=== PATIENT | female | born 1950 | race Caucasian/White ===

== ENCOUNTER 2022-03-26 20:29 | Inpatient (IN) | payer BC, OTHER ==
[~2022-03-26] VITALS: Ht 154.9 cm; Wt 71.7 kg
[2022-03-26 20:29] VITALS: BP_SYST 219
--- NOTE | 2022-03-26 20:29 | NUR ---
Placed in room 03 . Placed on monitoring coordinator, blood pressure machine and pulse oximeter. To gown for exam. Side rails up. Report given to Doni GARZA .
--- NOTE | 2022-03-26 20:31 | NUR ---
Code stroke called at this time
--- NOTE | 2022-03-26 20:32 | NUR ---
Pt off the unit for CT
--- NOTE | 2022-03-26 20:50 | NUR ---
# 20 gauge angiocath placed to RAC. Use of asceptic technique. Opsite placed over site. Blood return noted. Blood for lab drawn from site. Flushed with 10 cc of normal saline. No evidence of infiltration noted. Patient tolerated well.
[2022-03-26 21:00] LABS: BASOPHILS % (AUTO) 0.4 % (0.0-2.0); EOSINOPHILS # (AUTO) 0.1 K/uL (0.0-0.4); EOSINOPHILS % (AUTO) 0.6 % (0.0-4.0); HEMATOCRIT 44.8 % (36-48); HEMOGLOBIN 14.6 g/dL (12.0-16.0); LYMPHOCYTES # (AUTO) 1.8 K/uL (1.0-5.5); LYMPHOCYTES % (AUTO) 19.7 % (20.5-51.5); MEAN CORPUSCULAR HEMOGLOBIN 27 pg (27-31); MEAN CORPUSCULAR HGB CONC 33 % (32-36); MEAN CORPUSCULAR VOLUME 82 fL (79.0-98.0); MONOCYTES # (AUTO) 0.6 K/uL (0.0-1.0); MONOCYTES % (AUTO) 6.1 % (1.7-9.3); NEUTROPHILS # (AUTO) 6.8 K/uL (1.8-7.7); NEUTROPHILS % (AUTO) 73.2 % (40.0-70.0); PLATELET COUNT (AUTO) 199 K/uL (130-430); RED BLOOD CELL COUNT(AUTO) 5.46 MIL/uL (4.2-6.2); RED CELL DISTRIBUTION WIDTH 13.6 % (9.0-15.0); WHITE BLOOD COUNT (AUTO) 9.3 K/uL (4.8-10.8)
--- NOTE | 2022-03-26 21:17 | NUR ---
ER at bedside examining patient.
--- NOTE | 2022-03-26 21:18 | NUR ---
CALLED THE PATIENTS WORK TO REPORT THAT SHE WILL NOT BE ABLE TO ANSWER HER PHONE. SPOKE WITH AHSAN STATED WILL SEND MESSAGE TO ADMINISTRATION.
[2022-03-26 21:21] LABS: PROTHROMBIN TIME 10.3 SECS (9.5-12.5)
[2022-03-26 21:26] LABS: ANION GAP 10 (5-15); CALCIUM 9.3 mg/dL (8.4-11.0); CHLORIDE 103 mmol/L (98-107); CREATININE 0.99 mg/dL (0.55-1.30); GLUCOSE 134 mg/dL (70-99); UREA NITROGEN, BLOOD 16 mg/dL (8-21)
[2022-03-26 21:29] LABS: ALANINE AMINOTRANSFERASE 19 U/L (12-78); ALBUMIN 3.8 g/dL (3.4-4.8); ASPARTATE AMINOTRANSFERASE 20 U/L (10-37); TOTAL BILIRUBIN 0.3 mg/dL (0.0-1.0)
[2022-03-26 22:37] LABS: BILIRUBIN,URINE NEGATIVE (NEGATIVE); BLOOD, URINE NEGATIVE (NEGATIVE); CLARITY/URINE CLEAR (CLEAR); COLOR,URINE YELLOW (YELLOW); GLUCOSE,URINE NEGATIVE (NEGATIVE); KETONES,URINE NEGATIVE (NEGATIVE); LEUKOCYTE ESTERASE ,URINE NEGATIVE (NEGATIVE); NITRITE, URINE NEGATIVE (NEGATIVE); PH,URINE 7.5 (5.0-8.0); PROTEIN URINE NEGATIVE (NEGATIVE); UROBILINOGEN,URINE 0.2 (0.2-1.0)
[2022-03-26 22:50] LABS: BARBITURATE, URINE NEGATIVE (NEG <=200); BENZODIAZEPINE, URINE POSITIVE (NEG <=150); CANNABINOID, URINE NEGATIVE (NEG <=50); COCAINE, URINE NEGATIVE (NEG <=150); METHAMPHETAMINES SCREEN,URINE NEGATIVE (NEG <=500); OPIATE, URINE NEGATIVE (NEG <=100); PHENCYCLIDINE SCREEN,URINE NEGATIVE (NEG <=25); UR TRICYCLIC ANTIDEPRESSANTS NEGATIVE (NEG <=300); URINE AMPHETAMINE NEGATIVE (NEG <=500); URINE METHADONE NEGATIVE (NEG <=200); URINE OXYCODONE SCREEN NEGATIVE (NEG <=100); URINE PROPOXYPHENE SCREEN NEGATIVE (NEG <=300)
[2022-03-26] MEDS ORDERED: ASPIRIN 81 MG TAB.CHEW PO ONE (23:15)
[2022-03-26] MEDS ORDERED: ATORVASTATIN 20 MG TABLET PO ONE (23:15)
[2022-03-26] MEDS ORDERED: CLOPIDOGREL BISULFATE 75 MG TABLET PO ONE (23:30)
[2022-03-26] MEDS ORDERED: ATORVASTATIN 20 MG TABLET ONE (23:37)
[2022-03-27] VITALS (20 sets, daily range): BP systolic 135–177
[2022-03-27] MEDS ORDERED: D5/0.45 NS 500 ML IV ONE
[2022-03-27] MEDS ORDERED: ACETAMINOPHEN 325 MG TABLET PO PRN (00:15)
--- NOTE | 2022-03-27 00:42 | NUR ---
Admit bed requested Patient will be admitted to care of . Admitted to TELE unit. Diagnosis ACUTE CVA Inpatient (Yes or No) YES Observation (Yes or No)YES Orientation concerns or request close to nursing station (Yes or No) YES Covid Status NEGATIVE On vent or bipap NO Isolation requirements NO Needs a sitter NO From Home (Yes or if No enter name of facility) YES Requires Dialysis (Yes or No) NO Med Rec Completed (Yes of No) YES
--- NOTE | 2022-03-27 02:01 | NUR ---
COVID SAMPLE COLLECTED AND SENT TO LAB
--- NOTE | 2022-03-27 03:49 | NUR ---
Patient will be admitted to care of [facility]. Admitted to unit. Will go to room . Belongings list completed. Complete and up to date summary report printed. SBAR report to be given at bedside with opportunity for questions.
--- NOTE | 2022-03-27 03:52 | NUR ---
ADMISSION NOTE Received patient from ER via gurney. Patient admitted with diagnosis of ACUTE CVA. Patient is awake, alert, oriented X 4. Patient oriented to hospital room, call light, toileting, pain management and safety-teach back done. Patient informed that their room number is 104B. Personal belongings checked and Belongings List documented. Call light within reach.
[2022-03-27] MEDS: hydrALAZINE HCL 20 MG/ML VIAL IVP PRN ×3 (04:12→23:50)
[2022-03-27] MEDS ORDERED: ONDANSETRON HCL 4 MG/2 ML VIAL IVP PRN (04:45)
--- NOTE | 2022-03-27 05:16 | NUR ---
Joaquín Mahmood s/w [facility]
[2022-03-27] MEDS ORDERED: iohexoL 350 mgI/mL, 100 ML INFUS..BTL IV ONE (05:17)
--- NOTE | 2022-03-27 05:40 | NUR ---
TRANSFER PT TRANSFERRED FROM [facility] [place] VIA BED IN STABLE CONDITION. PT RESPONDING TO VERBAL STIMULATION, WITH SLOW SPEECH. VSS. PT ON RA. RAC 22G AND LAC 22G PATENT AND INTACT. PT DENIES ANY PAIN AT THIS TIME. HOB ELEVATED, BED IN LOWEST POSITION, CALL LIGHT IN REACH. WILL CONTINUE TO MONITOR PT.
--- NOTE | 2022-03-27 06:00 | NUR ---
@approximately 0400a pt.received via the er dept.admit dx:r/o cva.pt.had submitted to studies:ct;head,cxr,cta:head/neck. all studies presented negative results,that the pt.was not a candidate tpa therapy.pt.presented the unit v/s assessed noted b/p status elevated. no c/o pain,nausea.per cva portocol bedside swallow eval,neuro check-list,nih interventions attended to.pt.presented rt.sided neuro deficits;weakness:upper/lower extremity.pt.had been assisted to the restroom gait was assessed rt.lower extremity weakness noted;slight degree.pt.assisted return to bed.attended to oral care.pt.set-up@wash basin.pt.capable to brush teeth.pt.assisted return to bed.pt.repositioned.@approximately 0455a.pt.stated she could not move her rt.arm/leg.i attended to the neuro check pt.presented rt.sided weakness/slurred speech.i solicited rocky/rn to assess the pt.@approximately 0500a code stroke called. er-dept team arrived.;berna presented.v/s,blood glucose assessed:value:134mg/dl.b/p assessed values wnl.i administered apresoline;10mg ivp.2/t b/p status. paged. apprised of the pt's status/changes. ordered transfer to icu. dr smalls;neurology had been ordered consulted p/t to pt's transfer to mst unit.i conveyed the pt's report/data ellie.p/t transfer to icu rm:127-a pt.has submitted to 2nd ct;head study.
--- NOTE | 2022-03-27 06:00 | NUR ---
NIH SCORE BEDSIDE NIH PERFORMED, CURRENT SCORE: 9
--- NOTE | 2022-03-27 06:10 | NUR ---
TELEMED - NEURO CONSULT CONSULT WITH DR. ANN-MARIE ELENA OBTAINED VIA IRISH. PER RECOMMENDS STAT HEAD CT, CONFIRMED WITH IN HOUSE NEUROLOGY CONSULT DR. JEAN AND AGREES WITH STAT ORDER FOR MRI OF HEAD. Addendum: 03/27/22 at 0712 by Leelee Merida RN 40 - DR. JEAN CALLED BACK AT THIS TIME AND IS AGREEABLE FOR MRI ORDER. ORDER PUT IN STAT AT THIS TIME.
--- NOTE | 2022-03-27 06:53 | NUR ---
RADIOLOGY RADIOLOGY MADE AWARE OF STAT MRI NEEDED FOR ACUTE STROKE SYMPTOMS. PER RADIOLOGY NO ONE IS OC FOR MRI AND FOREIGN BANKNOTE TELLER TRADER WILL NOT GET HERE UNTIL 0830. ISSUE ESCALATED TO APPEALS EXAMINER AND ICU DIRECTOR THAT STAT CT IS NEEDED AND NO ONE IS AVAILABLE FOR PROCEDURE.
[2022-03-27 07:03] LABS: BASOPHILS # (AUTO) 0.1 K/uL (0.0-0.2); BASOPHILS % (AUTO) 0.4 % (0.0-2.0); EOSINOPHILS # (AUTO) 0.1 K/uL (0.0-0.4); EOSINOPHILS % (AUTO) 0.4 % (0.0-4.0); HEMATOCRIT 40.4 % (36-48); HEMOGLOBIN 13.3 g/dL (12.0-16.0); LYMPHOCYTES # (AUTO) 3.3 K/uL (1.0-5.5); LYMPHOCYTES % (AUTO) 25.8 % (20.5-51.5); MEAN CORPUSCULAR HEMOGLOBIN 27 pg (27-31); MEAN CORPUSCULAR HGB CONC 33 % (32-36); MEAN CORPUSCULAR VOLUME 82 fL (79.0-98.0); MONOCYTES # (AUTO) 0.7 K/uL (0.0-1.0); MONOCYTES % (AUTO) 5.6 % (1.7-9.3); NEUTROPHILS # (AUTO) 8.6 K/uL (1.8-7.7); NEUTROPHILS % (AUTO) 67.8 % (40.0-70.0); PLATELET COUNT (AUTO) 217 K/uL (130-430); RED CELL DISTRIBUTION WIDTH 13.3 % (9.0-15.0); WHITE BLOOD COUNT (AUTO) 12.7 K/uL (4.8-10.8)
[2022-03-27 07:38] LABS: ALANINE AMINOTRANSFERASE 18 U/L (12-78); ALBUMIN 3.6 g/dL (3.4-4.8); ASPARTATE AMINOTRANSFERASE 16 U/L (10-37); CHLORIDE 105 mmol/L (98-107); CHOLESTEROL 201 mg/dL (<200); CREATININE 1.02 mg/dL (0.55-1.30); FREE T4 (FREE THYROXINE) 1.2 ng/dL (0.6-1.6); GLUCOSE 125 mg/dL (70-99); HDL CHOLESTEROL 63 mg/dL (>55); THYROID STIMULATING HORMONE 4.15 uIu/mL (0.34-4.82); TOTAL BILIRUBIN 0.6 mg/dL (0.0-1.0); TRIGLYCERIDES 58 mg/dL (30-150); UREA NITROGEN, BLOOD 14 mg/dL (8-21)
--- NOTE | 2022-03-27 07:47 | NUR ---
CARE ENDORSED FROM JAYDEN GARZA. PT VSS. NAD NOTED. AAOX4, SLOW TO RESPOND AT TIMES. C/O RIGHT SIDED WEAKNESS. PENDING MRI TODAY AT 830 WHEN BITUMEN PLANT OPERATOR ARRIVES. QUESTIONNAIRE COMPLETED. CARDIO AT BEDSIDE FOR ECHO. FAMILY FRIEND AT BEDSIDE. WILL CONT TO MONITOR PT.
--- NOTE | 2022-03-27 07:47 | NUR ---
ENDORSEMENT BEDSIDE REPORT GIVEN TO GAYATHRI GARZA USING SBAR APPROACH.
[2022-03-27 07:58] LABS: ANION GAP 13 (5-15)
--- NOTE | 2022-03-27 08:25 | NUR ---
PT TO MRI WITH PRIMARY RN ON MONITOR. 2LPM O2 VIA N/C. AAOX4.
[2022-03-27] MEDS ORDERED: CLOPIDOGREL BISULFATE 75 MG TABLET PO SCH (09:00)
--- NOTE | 2022-03-27 09:25 | NUR ---
PT BACK FROM MRI. AAOX4. VSS. NAD NOTED. PT NEEDED TO USE RESTROOM. ABLE TO AMBULATE WITH MODERATE ASSIST, NOTED WEAKNESS ON RIGHT SIDE, MOSTLY LOWER EXTREMITY. PT ABLE TO VOID. NO OTHER COMPLAINTS. PT BACK INTO BED ON MONITOR AND O2. PENDING PT EVAL AND SWALLOW EVAL FOR DIET ORDER, PT PASSED RN SWALLOW SCREEN TWICE, ONE FROM TELEMETRY AND ONE FROM ICU. ABLE TO GIVE PO MEDS.
[2022-03-27] MEDS: ASPIRIN 81 MG TAB.CHEW PO SCH (09:37)
[2022-03-27] MEDS: ATORVASTATIN 20 MG TABLET PO SCH (09:37)
--- NOTE | 2022-03-27 11:45 | NUR ---
TRAINING SYSTEMS OFFICER AT BEDSIDE, PT REFUSED MRI SCAN, STATES "TOO TIRED" AND "I DONT WANT TO GO THROUGH ANOTHER SCAN". PT AAOX4. VSS. NAD NOTED. WILL NOTIFY MD SUMMERS.
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
--- NOTE | 2022-03-27 14:54 | NUR ---
Nursing may assist the patient with ambulation. Use the FWW.
--- NOTE | 2022-03-27 17:04 | NUR ---
ST EVALUATION COMPLETED. ST TX NOT INDICATED AT THIS TIME. RECOMMEND PO DIET OF MECHANICAL SOFT AND THIN LIQUID. SET-UP AND DISTANT SUPERVISION RECOMMENDED. FULL ASPIRATION PRECAUTIONS
[2022-03-27] MEDS ORDERED: amLODIPine BESYLATE 5 MG TABLET PO ONE (19:00)
--- NOTE | 2022-03-27 20:48 | NUR ---
DR MIRANDA DOUGLAS @ the bedside with patient / .
--- NOTE | 2022-03-27 20:48 | NUR ---
PATIENT AWAKE ALERT on Room air 02 SAT 95 % ASSIST FOR POSITION CHANGE no SOB skin dry warm chest movement also symmetrical pillows used for off loading comfort measures implemented & tolerated / .
--- NOTE | 2022-03-27 22:37 | NUR ---
assist patient with use of bed palafox position change tolerated Right sided weakness is noted / .
[2022-03-28] VITALS (21 sets, daily range): BP systolic 87–185
--- NOTE | 2022-03-28 00:19 | NUR ---
APRESOLINE 10 MG IVP administer for HTN and helpful BP 155/67 HR 79 02 SAT 95 % RR @ 18 & Regular / .
--- NOTE | 2022-03-28 02:47 | NUR ---
Patient Resting is verbally Responsive sips of water po offered & tolerated skin dry warm pillows used for off loading Right sided weakness is noted call ramirez with patient / .
[2022-03-28 06:31] LABS: BASOPHILS % (AUTO) 0.2 % (0.0-2.0); EOSINOPHILS % (AUTO) 0.1 % (0.0-4.0); HEMATOCRIT 38.2 % (36-48); LYMPHOCYTES # (AUTO) 1.7 K/uL (1.0-5.5); LYMPHOCYTES % (AUTO) 12.6 % (20.5-51.5); MEAN CORPUSCULAR HEMOGLOBIN 28 pg (27-31); MEAN CORPUSCULAR HGB CONC 34 % (32-36); MEAN CORPUSCULAR VOLUME 81 fL (79.0-98.0); MONOCYTES # (AUTO) 0.4 K/uL (0.0-1.0); MONOCYTES % (AUTO) 3.3 % (1.7-9.3); NEUTROPHILS # (AUTO) 11.2 K/uL (1.8-7.7); NEUTROPHILS % (AUTO) 83.8 % (40.0-70.0); PLATELET COUNT (AUTO) 202 K/uL (130-430); RED CELL DISTRIBUTION WIDTH 13.5 % (9.0-15.0); WHITE BLOOD COUNT (AUTO) 13.4 K/uL (4.8-10.8)
[2022-03-28 06:48] LABS: ALANINE AMINOTRANSFERASE 19 U/L (12-78); ALBUMIN 3.3 g/dL (3.4-4.8); ANION GAP 9 (5-15); C-REACTIVE PROTEIN QUANT 0.9 mg/dL (0-0.5); CALCIUM 8.7 mg/dL (8.4-11.0); CHLORIDE 107 mmol/L (98-107); CREATININE 1.08 mg/dL (0.55-1.30); GLUCOSE 134 mg/dL (70-99); TOTAL BILIRUBIN 0.5 mg/dL (0.0-1.0); UREA NITROGEN, BLOOD 16 mg/dL (8-21)
--- NOTE | 2022-03-28 07:34 | NUR ---
Received report at bedside, pt alert, slurred speech, mild facial droop, states unable to lift R.arm or leg. Pt wanted to call her outside physician on her phone. Pt states she is not ok, but could not verbalize what exactly was wrong. will continue to monitor.
[2022-03-28] MEDS: ASPIRIN 81 MG TAB.CHEW PO SCH (08:25)
[2022-03-28] MEDS: ATORVASTATIN 20 MG TABLET PO SCH (08:25)
[2022-03-28] MEDS ORDERED: amLODIPine BESYLATE 5 MG TABLET PO SCH (09:00)
[2022-03-28 09:20] LABS: ASPARTATE AMINOTRANSFERASE 28 U/L (10-37)
--- NOTE | 2022-03-28 10:04 | NUR ---
pt son Sawyer came to visit with pt at bedside, pt BP elevated, pt refused hydralazine states it makes her feel sick, Mb will place order for new med. pt refuses lisinopril (home med) states it is not effective. made aware, pt takes xanax at home (03/10) 2.5mg 2x daily. will place order.
[2022-03-28] MEDS ORDERED: ALPRAZolam 0.25 MG TABLET PO ONE (10:15)
[2022-03-28 10:27] LABS: ERYTHROCYTE SEDIMENTATION RATE 14 MM/HR (0-20)
[2022-03-28] MEDS: cloNIDine HCL 0.1 MG TABLET PO PRN ×2 (10:58→15:13)
--- NOTE | 2022-03-28 11:28 | NUR ---
PT AND SON OBINNA - NOTIFIED OF TRANSFER ORDER.
--- NOTE | 2022-03-28 11:33 | NUR ---
SPOKE WITH ELAINA FROM PT - PATIENT WEAKER TODAY THAN YESTERDAY ON THE RIGHT SIDE - CALL PLACED TO - LEFT MESSAGE.
--- NOTE | 2022-03-28 11:39 | NUR ---
SPOKE TO - NO NEW ORDERS - OK WITH TRANSFER
--- NOTE | 2022-03-28 12:40 | NUR ---
Dietitian Recommendations * Continue mechanical soft per PHARMACEUTICAL SCIENTIST * Consider bowel regimen as pt has not had BM since admit * Encourage good PO intake GS, MPH, RD Please refer to RD Assessment for further details. Thanks! Addendum: 03/28/22 at [address] Amended: Links added.
--- NOTE | 2022-03-28 13:15 | NUR ---
Spoke to Myrna,director of CM at [facility]. She stated they are at capacity, they do not have a bed for the patient.
--- NOTE | 2022-03-28 18:45 | NUR ---
SPOKE WITH DR. JEAN, NEUROLOGIST, ZANE TO CHANGE NEUROCHECKS PER ROUTINE. PT STABLE FOR TRANSFER TO TELE.
--- NOTE | 2022-03-28 19:45 | NUR ---
REPORT GIVEN TO TELE RESOURCE RN
--- NOTE | 2022-03-28 20:20 | NUR ---
Opening notes Pt AAOx3, VSS. No s/s distress noted. IV saline locked L. and R. AC clear and patent. Graham R. leg maintained floated on pillows for comfort. Call light within reach. Bed low, locked, siderails up x2, alarm on. To monitor. Addendum: 04/01/22 at 0607 by Sandra Coulter RN Disregard above notes, incorrect date/time.
--- NOTE | 2022-03-28 20:30 | NUR ---
Patient transferred from ICU to [facility]. Patient AOx4, resting in bed, no distress noted. Patient states she is unable to move right and left leg, no effort noted against gravity. Speech is appropriate but slurred, some facial droop noted to right side. BP 152/62. Patient refused inventory of personal belongings. Safety precautions in place.
[2022-03-28] MEDS: amLODIPine BESYLATE 5 MG TABLET PO SCH (20:59)
[2022-03-28] MEDS: ALPRAZolam 0.25 MG TABLET PO SCH (20:59)
--- NOTE | 2022-03-29 02:21 | NUR ---
ROUNDS Patient sleeping in bed, respirations even and unlabored. Safety precautions in place.
[2022-03-29] MEDS: cloNIDine HCL 0.1 MG TABLET PO PRN (04:30)
--- NOTE | 2022-03-29 04:30 | NUR ---
Clonidine PRN given for BP 172/67, HR 64. Right side weakness and facial droop unchanged throughout shift.
--- NOTE | 2022-03-29 05:45 | NUR ---
nghia spoke with darwin in admitting and she said that the house sup said they dont have a bed avail today
--- NOTE | 2022-03-29 07:32 | NUR ---
CLOSING Patient sleeping in bed, respirations even and unlabored. AOx4. Right side weakness and facial droop unchanged throughout night. Speech appropriate but slurred. Patient got up to commode with max assist and two people. Also tried to have bowel movement with bedpan but was unable. Patient states it has been a few days since her last bowel movement. Safety precautions in place. Endorsed to oncoming nurse.
[2022-03-29 08:00] VITALS: BP_SYST 150
[2022-03-29] MEDS: ATORVASTATIN 20 MG TABLET PO SCH (09:49)
[2022-03-29] MEDS: ASPIRIN 81 MG TAB.CHEW PO SCH (09:49)
[2022-03-29] MEDS: amLODIPine BESYLATE 5 MG TABLET PO SCH ×2 (09:50→20:28)
[2022-03-29] MEDS: ALPRAZolam 0.25 MG TABLET PO SCH ×2 (09:51→20:29)
[2022-03-29 12:43] VITALS: BP_SYST 146
[2022-03-29] MEDS ORDERED: CLOPIDOGREL BISULFATE 75 MG TABLET PO ONE (13:15)
[2022-03-29] MEDS ORDERED: ASA81 PO (15:22)
[2022-03-29] MEDS ORDERED: AMLO5TAB4 PO (15:22)
[2022-03-29] MEDS ORDERED: ACET325T PO (15:22)
[2022-03-29] MEDS ORDERED: ALPR0.25 PO (15:22)
[2022-03-29] MEDS ORDERED: ONDA4VIA52 IVP (15:22)
[2022-03-29] MEDS ORDERED: CLOP75TA32 PO (15:22)
[2022-03-29] MEDS ORDERED: LIP20 PO (15:22)
[2022-03-29] MEDS ORDERED: CLON0.1T PO (15:22)
[2022-03-29 16:13] VITALS: BP_SYST 134
--- NOTE | 2022-03-29 18:53 | NUR ---
Patient had an uneventful day, no acute neurological deficit noted today. Patient tolerated meds and diet well. Plans for discharge to [facility] rehab when bed becomes available. Patient became tearful and emotional at times today. Emotional support and reassurance rendered. Safety maintained this shift, no c/o pain. Continue to monitor closely. continue with POC
--- NOTE | 2022-03-29 19:45 | NUR ---
ROUNDS PATIENT AWAKE IN BED, VITALS STABLE, NO PAIN AT THIS TIME. FAMILY AT THE BEDSIDE. ASSISTED PATIENT TO THE BEDSIDE COMMODE AND HAD BOWEL MOVEMENT. NEEDS ATTENDED TO. CALL LIGHT PLACED WITHIN REACH.
[2022-03-29 20:00] VITALS: BP_SYST 157
[2022-03-30 00:42] VITALS: BP_SYST 132
--- NOTE | 2022-03-30 06:29 | NUR ---
CLOSING NOTES PATIENT AWAKE, NO COMPLAINTS AT THIS TIME, NEEDS ATTENDED TO. SAFETY MEASURES MAINTAINED. CALL LIGHT PLACED WITHIN REACH.
[2022-03-30 08:00] VITALS: BP_SYST 140
[2022-03-30] MEDS: ALPRAZolam 0.25 MG TABLET PO SCH ×2 (08:32→21:09)
[2022-03-30] MEDS: ATORVASTATIN 20 MG TABLET PO SCH (08:32)
[2022-03-30] MEDS: ASPIRIN 81 MG TAB.CHEW PO SCH (08:33)
[2022-03-30] MEDS: CLOPIDOGREL BISULFATE 75 MG TABLET PO SCH (08:33)
[2022-03-30] MEDS: amLODIPine BESYLATE 5 MG TABLET PO SCH ×2 (08:34→21:10)
[2022-03-30 11:54] VITALS: BP_SYST 162
[2022-03-30] MEDS: cloNIDine HCL 0.1 MG TABLET PO PRN (12:04)
[2022-03-30 16:14] VITALS: BP_SYST 134
--- NOTE | 2022-03-30 17:48 | NUR ---
DR YORK ROUNDED ON PATIENT, PLANS FOR SURGERY TOMORROW. SPOKE WITH HIM REGARDING BUCKS TRACTION ORDERED BY DR CASTRO, DR YORK DO NOT RECOMMEND BUCKS TRACTION AT TIME. WILL NOTIFY DR GALLO DOUGLAS. Addendum: 03/30/22 at 1847 by Tony Marina, KAYLA GARZA CHARTED ON WRONG PATIENT
--- NOTE | 2022-03-30 18:53 | NUR ---
PATIENT RESTING COMFORTABLY IN BED, FREE OF ANY COMPLAINTS AT THIS TIME. PATIENT OFFERED MRI HISTORY FORM TO FILL OUT BUT REFUSED TO COMPLETE FORM. PATIENT STAYS SHE DOESN'T WANT TO HAVE MRI HERE FOR INSURANCE REASONS. SHE WOULD LIKE TO HAVE IT AT [facility]. UNEVENTFUL DAY, SAFETY MAINTAINED. CONTINUE WITH PLAN OF CARE.
[2022-03-30 20:00] VITALS: BP_SYST 160
[2022-03-31 01:14] VITALS: BP_SYST 154
[2022-03-31 08:00] VITALS: BP_SYST 139
[2022-03-31] MEDS: ATORVASTATIN 20 MG TABLET PO SCH (09:59)
[2022-03-31] MEDS: amLODIPine BESYLATE 5 MG TABLET PO SCH ×2 (09:59→21:53)
[2022-03-31] MEDS: ASPIRIN 81 MG TAB.CHEW PO SCH (10:00)
[2022-03-31] MEDS: CLOPIDOGREL BISULFATE 75 MG TABLET PO SCH (10:00)
[2022-03-31] MEDS: ALPRAZolam 0.25 MG TABLET PO SCH ×2 (10:02→21:53)
[2022-03-31 10:58] VITALS: BP_SYST 112
--- NOTE | 2022-03-31 11:30 | NUR ---
CM: s/w with pt at bedside: she requested [facility] Rehab only if not accepted she wants to go home. Pt said she lives alone, but will go home regardless. I sent the dc order and referral to [facility] Rehab # [phone], tel [phone].
--- NOTE | 2022-03-31 11:46 | NUR ---
MS PATTERSON CAN TOLERATE UP TO 3 HOURS OF REHAB.PER DAY
[2022-03-31] MEDS ORDERED: GADOTERATE MEGLUMINE 7.5 MMOL/15 ML VIAL IV ONE (13:07)
--- NOTE | 2022-03-31 17:12 | NUR ---
PHYSICAL THERAPY CO-SIGN The Physical Therapy Progress Notes documented by Fleet Mechanic have been reviewed. Reviewed/Co-Signed by: Jericho Martinez Documentation Done by: Gail Doyle Addendum: 03/31/22 at 1712 by Jericho Martinez PT Amended: Links added.
[2022-03-31 17:26] VITALS: BP_SYST 120
--- NOTE | 2022-03-31 19:30 | NUR ---
Patient stable, no c/o pain/SOB. IV left AC patent. All safety secured will endorse
[2022-03-31 20:15] VITALS: BP_SYST 145
--- NOTE | 2022-03-31 20:20 | NUR ---
Opening notes Pt AAOx3, VSS. No s/s distress noted. IV saline locked L. and R. AC clear and patent. Graham R. leg maintained floated on pillows for comfort. Call light within reach. Bed low, locked, siderails up x2, alarm on. To monitor.
--- NOTE | 2022-03-31 21:58 | NUR ---
Voided Pt assisted to bedpan, pt voided. Pt provided self with pericare. Graham heels maintained floated on pillows. Call light within reach. To monitor.
[2022-04-01] VITALS: BP_SYST 144
[2022-04-01 06:53] LABS: BASOPHILS # (AUTO) 0.1 K/uL (0.0-0.2); BASOPHILS % (AUTO) 0.6 % (0.0-2.0); EOSINOPHILS # (AUTO) 0.1 K/uL (0.0-0.4); EOSINOPHILS % (AUTO) 1.5 % (0.0-4.0); HEMATOCRIT 38.9 % (36-48); LYMPHOCYTES # (AUTO) 1.9 K/uL (1.0-5.5); LYMPHOCYTES % (AUTO) 21.2 % (20.5-51.5); MEAN CORPUSCULAR HEMOGLOBIN 27 pg (27-31); MEAN CORPUSCULAR HGB CONC 33 % (32-36); MEAN CORPUSCULAR VOLUME 81 fL (79.0-98.0); MONOCYTES # (AUTO) 0.5 K/uL (0.0-1.0); MONOCYTES % (AUTO) 5.9 % (1.7-9.3); NEUTROPHILS # (AUTO) 6.4 K/uL (1.8-7.7); NEUTROPHILS % (AUTO) 70.8 % (40.0-70.0); PLATELET COUNT (AUTO) 196 K/uL (130-430); RED BLOOD CELL COUNT(AUTO) 4.78 MIL/uL (4.2-6.2); RED CELL DISTRIBUTION WIDTH 13.4 % (9.0-15.0)
[2022-04-01 07:23] LABS: ALANINE AMINOTRANSFERASE 25 U/L (12-78); ANION GAP 11 (5-15); ASPARTATE AMINOTRANSFERASE 17 U/L (10-37); CALCIUM 8.8 mg/dL (8.4-11.0); CHLORIDE 107 mmol/L (98-107); CREATININE 0.93 mg/dL (0.55-1.30); GLUCOSE 105 mg/dL (70-99); TOTAL BILIRUBIN 0.3 mg/dL (0.0-1.0); UREA NITROGEN, BLOOD 19 mg/dL (8-21)
[2022-04-01 07:40] VITALS: BP_SYST 155
--- NOTE | 2022-04-01 08:00 | NUR ---
Initial Patient AAOx4, no signs of distress. IV to left AC intact, call light w/in reached, and bed in low position
[2022-04-01 08:12] VITALS: BP_SYST 139
[2022-04-01] MEDS: ASPIRIN 81 MG TAB.CHEW PO SCH (08:13)
[2022-04-01] MEDS: ALPRAZolam 0.25 MG TABLET PO SCH ×2 (08:14→21:22)
[2022-04-01] MEDS: ATORVASTATIN 20 MG TABLET PO SCH (08:14)
[2022-04-01] MEDS: CLOPIDOGREL BISULFATE 75 MG TABLET PO SCH (08:15)
[2022-04-01] MEDS: amLODIPine BESYLATE 5 MG TABLET PO SCH ×2 (08:15→21:23)
[2022-04-01 11:31] VITALS: BP_SYST 144
--- NOTE | 2022-04-01 13:02 | NUR ---
Head Of Marketing [employer] PROMOTIONAL REPRESENTATIVE received a referral from Dr. Mahmood to see pt. for "Possible underlying psychosocial issues related to hospitalization". PROMOTIONAL REPRESENTATIVE introduced self to pt who was speaking to her two sons who were in the room, Sawyer Bradley, (Rebecca Echeverria) and other son, Dann Bradley, (Camilo Echeverria). Son Sawyer was consoling pt. who stated she was upset and wanted to leave. Pt. 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 Pt. stated Sudha the CM in TCU, Transitional Care Unit, is holding a bed for her and pt. was very adamant as she did not want to lose her bed there. Pt. stated she wants to get better, wants PT 3 hours a day. Pt. also stated our PT wrote a bad note on her progress, one day she can walk and the next day she is unable to. Pt. stated PT only got her to the edge of her bed and did not help her walk. PROMOTIONAL REPRESENTATIVE shared info with SHIRIN Yuan who stated she spent a good amount of time with pt. explaining to her about her ambulating and regressing. Lissy is working with Dr. Godwin at [facility]. PROMOTIONAL REPRESENTATIVE will remain available as needed.
--- NOTE | 2022-04-01 15:08 | NUR ---
Patient crying very emotional, hitting bed stating "I want to get out of here" per HEALTH TECHNICIAN (Iveth) patient verbalizes "I am going to call 911 to get me out of here". Per CM (Kaylen) patient has a bed available at [facility] (U)transitional care unit pending authorization from insurance. Will console and continue to monitor patient
[2022-04-01 17:00] VITALS: BP_SYST 140
--- NOTE | 2022-04-01 19:25 | NUR ---
Patient resting in bed, calm no outburst no signs of distress. IV LAC patent. Call light w/in reached, bed in low position, will endorse to oncoming nurse.
[2022-04-01 20:00] VITALS: BP_SYST 123; BP_SYST 156
--- NOTE | 2022-04-01 21:15 | NUR ---
Rounds/commode Two people assist pt to use bedside commode. Pt had a bowel movement. WELL LOGGING CAPTAIN provided bed bath/linens changed.
[2022-04-02 00:48] VITALS: BP_SYST 159
--- NOTE | 2022-04-02 06:55 | NUR ---
Closing notes Pt alert, awake, no s/s distress noted. Pt repositioned, made comfortable. Call light within reach. Safety maintained. To endorse to AM nurse.
[2022-04-02 07:40] VITALS: BP_SYST 155
--- NOTE | 2022-04-02 07:40 | NUR ---
INITIAL ROUNDS Received pt AAOX4, no s/s resp distress, no c/o pain or discomfort. Pt with right arm weakness-unable to move/lift right arm. Pt observed moving her right leg up and down-pt stated she was unable to do that yesterday. Noted slight right-sided facial droop. Plan of care for the day reviewed with pt-pt verbalized her understanding-pt stated she wants to go to [facility]. Pain management, disease process, skin and safety discussed-teach back done. Side rails up x3, bed alarm on for safety. Call light within reach.
[2022-04-02] MEDS: amLODIPine BESYLATE 5 MG TABLET PO SCH ×2 (10:14→21:32)
[2022-04-02] MEDS: CLOPIDOGREL BISULFATE 75 MG TABLET PO SCH (10:14)
[2022-04-02] MEDS: ASPIRIN 81 MG TAB.CHEW PO SCH (10:15)
[2022-04-02] MEDS: ATORVASTATIN 20 MG TABLET PO SCH (10:15)
[2022-04-02] MEDS: ALPRAZolam 0.25 MG TABLET PO SCH ×2 (10:15→21:32)
--- NOTE | 2022-04-02 12:30 | NUR ---
CM: Per Sudha/[facility]/TCU, got auth from insurance and assigned pt to room 106B . She requested pt to be at the facility at 830 pm. CM arranged Medic 1, for 8 pm picker machine operator. --KAYLA Jimenez aware. DC package placed in nursing unit.
[2022-04-02 12:47] VITALS: BP_SYST 150
[2022-04-02 16:13] VITALS: BP_SYST 152
--- NOTE | 2022-04-02 17:24 | NUR ---
PT INFORMED TRANSFER ON HOLD Pt and pt's children informed that the [facility] transfer was cancelled for tonight due to no bed available. Pt reassured that the transfer order is still in place, that there was just no bed availability tonight and that the ambulance is still on will call. Pt verbalized her understanding.
--- NOTE | 2022-04-02 18:42 | NUR ---
PHYSICAL THERAPY CO-SIGN The Physical Therapy Progress Notes documented by Alignment Specialist have been reviewed. Reviewed/Co-Signed by: Jericho Martinez Documentation Done by: LESLIE MACDONALD Addendum: 04/02/22 at 1842 by Jericho Martinez PT Amended: Links added.
--- NOTE | 2022-04-02 18:59 | NUR ---
CLOSING NOTE Pt sitting up in bed visiting with her family. No s/s resp distress, no c/o pain or discomfort. Pt remains hopeful that she will be transferred to TCU tomorrow. Skin and safety precautions remain in place. Call light within reach.
[2022-04-02 20:35] VITALS: BP_SYST 158
--- NOTE | 2022-04-02 20:46 | NUR ---
Bed palafox, brush teeth Assisted patient with bed palafox, voided. Repositioned for comfort. She requested toothbrush and paste to brush teeth, provided minimal assistance (opened cap) and she said will brush own teeth.
[2022-04-03 00:30] VITALS: BP_SYST 142
--- NOTE | 2022-04-03 02:04 | NUR ---
Bed palafox, reposition Assisted patient with bed palafox, voided. Assisted patient with reposition and turning. Safety precautions in place and call light w/in reach.
[2022-04-03] MEDS ORDERED: MULTIVITS,CA,MINERALS/IRON/FA 1 TABLET PO SCH (09:00)
--- NOTE | 2022-04-03 09:16 | NUR ---
GAVE REPORT TO RANDY GARZA @ TCU UNIT THE PATIENT IS GETTING TRANSFERRED TO.
[2022-04-03] MEDS: ASPIRIN 81 MG TAB.CHEW PO SCH (09:31)
[2022-04-03] MEDS: CLOPIDOGREL BISULFATE 75 MG TABLET PO SCH (09:32)
[2022-04-03] MEDS: ATORVASTATIN 20 MG TABLET PO SCH (09:32)
[2022-04-03] MEDS: amLODIPine BESYLATE 5 MG TABLET PO SCH (09:32)
[2022-04-03] MEDS: ALPRAZolam 0.25 MG TABLET PO SCH (09:32)
[2022-04-03 11:01] VITALS: BP_SYST 152
[2022-04-03 14:04] VITALS: BP_SYST 151
--- NOTE | 2022-04-03 14:14 | NUR ---
PATIENT TRANSFERRED TO [facility] TCU UNIT VIA AMBULANCE. ALL BELONGINGS SENT WITH THE PATIENT.
== END 2022-04-03 14:14 | disposition short-term general hospital (02) | DRG 65 ==
LOC: SED 20:29 → STU 23:26 → SIC 03-27 05:40 → STU 03-28 20:24 → SMU 03-30 06:12 → STU 03-30 10:17 → SMU 04-02 15:53
PROVIDERS: ADMIT Internal Medicine; ATTEND Internal Medicine
DX: I63.9 Cerebral infarction, unspecified (principal); I69.351 Hemiplegia and hemiparesis following cerebral infarction affecting right dominant side; I10 Essential (primary) hypertension; E78.5 Hyperlipidemia, unspecified; R29.705 NIHSS score 5; F41.9 Anxiety disorder, unspecified; Z20.822 Contact with and (suspected) exposure to COVID-19; R47.81 Slurred speech
CPT/HCPCS: 36415; 70450-TC; 70496; 70498; 70551; 70553; 71045; 72141; 76376; 80053; 80061; 80307; 81003; 82607; 82746; 83036; 83880; 84439; 84443; 84484; 85025; 85610-TC; 85651-TC; 85730-TC; 86140; 86886; 86900; 86901; 92610-GN; 93005; 93306; 96360; 97110-GP; 97112-GP; 97163-GP; 97530-GP; 99291; A9575; G0378; J0360; J2405; Q9967